=== PATIENT | male | born 1985 | race African-American/Black ===

== ENCOUNTER 2019-07-23 16:16 | Emergency (ER) | payer SELFPAY ==
[~2019-07-23] VITALS: Ht 180.3 cm; Wt 104.5 kg
[2019-07-23] MEDS ORDERED: PERTUSS(ACELL),DIPH,TET VAC/PF 0.5 ML VIAL IM ONE (16:45)
[2019-07-23] MEDS ORDERED: LIDOCAINE 1% 10 ML VIAL INJ ONE (16:45)
[2019-07-23] MEDS ORDERED: ACETAMINOPHEN 500 MG TABLET PO ONE (16:45)
[2019-07-23] MEDS ORDERED: BACITRACIN 0.9 GM PACKET OINTMENT TP ONE (16:45)
[2019-07-23 16:46] VITALS: BP 146/95
== END 2019-07-23 18:45 | disposition home or self-care (01) ==
LOC: EMS 16:18
DX: S61.214A Laceration without foreign body of right ring finger without damage to nail, initial encounter (principal); S61.210A Laceration without foreign body of right index finger without damage to nail, initial encounter; W20.8XXA Other cause of strike by thrown, projected or falling object, initial encounter; Y93.89 Activity, other specified; Y92.89 Other specified places as the place of occurrence of the external cause; Y99.8 Other external cause status
CPT/HCPCS: 12002; 73130; 90471; 90715; 99284; J3490